=== PATIENT | female | born 1950 | race Hispanic/Latino ===

== ENCOUNTER 2018-12-07 18:05 | Inpatient (IN) | payer MEDICARE, BC ==
[2018-12-07] MEDS ORDERED: Morphine 4 MG/ML VIAL ONE ×2 (19:19→21:27)
[2018-12-07 19:30] LABS: #Eosinphils 0.1 thou/uL (0.0-0.7); #Lymphocytes 2.7 thou/uL (1.20-3.40); #Monocytes 0.8 thou/uL (0.11-0.59); #Neutrophils 9.1 thou/uL (1.40-6.50); %Basophils 0.3 % (0.0-1.0); %Eosinophils 1.1 % (0.0-10.0); %Lymphocytes 21.3 % (21.0-51.0); %Monocytes 6.3 % (0.0-10.0); Hemoglobin 15.7 g/dL (12.0-16.0); Mean Corpuscular HGB CONC 32.5 g/dL (32.0-36.0); Mean Corpuscular Hemoglobin 28.2 pg (27.0-31.0); Mean Corpuscular Volume 86.8 fL (78.0-98.0); Mean Platelet Volume 8.1 fL (7.4-10.4); Platelet Count 224 thou/uL (130-400); RBC Distribution Width 13.8 % (11.5-14.5); Red Blood Cell (RBC) Count 5.56 mill/uL (4.20-5.40); White Blood Cell (WBC) Count 12.8 thou/uL (4.8-10.8)
[2018-12-07 19:51] LABS: ALT (SGPT) 31 U/L (8-55); AST (SGOT) 27 U/L (5-34); Albumin 4.5 g/dL (3.4-4.8); Alkaline Phosphatase 72 U/L (40-150); Anion Gap 15 mmol/L (10-20); BUN (Urea Nitrogen) 21 mg/dL (9.8-20.1); Bilirubin, Total 0.4 mg/dL (0.2-1.2); Calc. Creatinine Clearance 0 mL/min (70-130); Carbon Dioxide 26 mmol/L (23-31); Chloride 101 mmol/L (98-107); Estimated GFR-MDRD 61; Globulin 2.6 g/dL (2.4-3.5); Glucose 118 mg/dL (80-115); Potassium 4.5 mmol/L (3.5-5.1); Protein, Total 7.1 g/dL (6.0-8.3); Sodium 137 mmol/L (136-145)
--- NOTE | 2018-12-07 19:56 | RAD ---
FXR Knee Lt 4 View STANDARD: 12/07/2018 7:14 PM CLINICAL INDICATION: Fall with posttraumatic pain COMPARISON: None. FINDINGS: Fracture:Distracted, comminuted fracture of the patella is present Arthropathy:None of significance. Prominent anterior soft tissue swelling. There is mild suprapatellar joint capsular distention. IMPRESSION: 1. Acute mildly displaced patellar fracture which is comminuted.
[2018-12-07] MEDS ORDERED: CEFAZOLIN 2 GM in Premix Bag 1 BAG IVPB SCH (20:30)
[2018-12-07] MEDS ORDERED: Lorazepam 2 MG/ML VIAL ONE (21:22)
--- NOTE | 2018-12-07 21:54 | HP ---
CONSULTATIONS: Orthopedics, Dr. Sheriff. HISTORY OF PRESENT ILLNESS: The patient is a 68-year-old woman, who was sweeping her porch when she lost her balance and fell landing on her left knee and bilateral upper extremities. She was brought to the emergency department with a chief complaint of left knee pain, swelling, and inability to ambulate. She underwent evaluation and examination and was noted to have a comminuted patella fracture. At which time, we were asked to evaluate the patient for admission and obtain Orthopedic consultation. The patient denied any loss of consciousness, though she did strike her face on something when she fell. She has had a small laceration noted to the inside of her upper lip. ALLERGIES: NONE. CURRENT MEDICATIONS: The patient does not have her list, but says that her will be able to obtain that tonight. PAST MEDICAL HISTORY: 1. Diabetes. 2. Hypertension. 3. Hyperlipidemia. 4. Anxiety. 5. Depression. PAST SURGICAL HISTORY: 1. Appendectomy. 2. Cholecystectomy. 3. Hysterectomy. 4. Tonsillectomy. SOCIAL HISTORY: The patient denies drug, tobacco, or alcohol use. She lives at home independently with her . PHYSICAL EXAMINATION: VITAL SIGNS: Blood pressure 171/86, heart rate 85, respirations 16, oxygen saturation 95% on room air, and temperature is 98.4. GENERAL: The patient is resting comfortably in bed. She is awake, alert, and oriented x3. Ponce Coma Scale is 15. HEENT: Head is normocephalic, atraumatic. Eyes, extraocular motion intact. PERRLA bilaterally. Ears are atraumatic without discharge. Nose, atraumatic without discharge. The patient has an abrasion to her upper lip and also has a small laceration to the inside of her upper lip of approximately 3 mm. Dentition appears intact. Oropharynx is clear. NECK: Nontender. Trachea is midline. No JVD. CHEST: Clear to auscultation with good inspiratory and expiratory effort. HEART: Regular rate and rhythm. ABDOMEN: Soft, flat, nontender with active bowel sounds. PELVIS: Stable. EXTREMITIES: Neurovascularly intact x4. Left lower extremity has swelling noted to the anterior knee with tenderness to palpation and contusion. BACK: Atraumatic and nontender. LABORATORY FINDINGS: White blood cells 12.8, hemoglobin 15.7, hematocrit 48.3, platelets 224. Sodium 137, potassium 4.5, chloride 102, CO2 of 26, BUN 21, creatinine 0.91, glucose 118. LFTs are unremarkable. RADIOGRAPHS: Views of the left knee showed acute mildly displaced comminuted patellar fracture. ASSESSMENT: 1. Status post ground level fall. 2. Comminuted left patellar fracture. 3. History of hypertension. 4. History of hyperlipidemia. 5. History of depression and anxiety. 6. History of type-2 diabetes. PLAN: Plan will be to admit the patient to the surgical floor. She will be placed in a knee immobilizer tonight. She will be made n.p.o. after midnight. She will have pain control, pulmonary toilet, gastritis, and mechanical VTE prophylaxis. Postoperatively, the patient will work with Physical and Occupational Therapy and plan to be discharged later tomorrow after surgery. The evaluation, examination, and laboratory results were discussed with Dr. Trinidad at the time of dictation. She was evaluated in the emergency department. The patient was also evaluated by Dr. Sheriff in the emergency department. Job ID: [id number]
[2018-12-07] MEDS ORDERED: Ondansetron PF 4 MG/2 ML Vial IVP PRN (23:09)
[2018-12-07] MEDS ORDERED: Morphine 4 MG/ML VIAL SLOW IVP PRN (23:09)
[2018-12-07] MEDS ORDERED: Dextrose 5% in Water 1,000 ML IV PRN (23:09)
[2018-12-07] MEDS ORDERED: Ketorolac Tromethamine 30 MG/ML VIAL IVP SCH (23:09)
[2018-12-07] MEDS ORDERED: Morphine 2 MG/ML SYRINGE SLOW IVP PRN (23:09)
[2018-12-07] MEDS ORDERED: Ondansetron ODT 4 MG TAB PO PRN (23:09)
[2018-12-07] MEDS ORDERED: hydrALAZINE 20 MG/ML VIAL SLOW IVP PRN (23:09)
[2018-12-07] MEDS ORDERED: Cyclobenzaprine 10 MG TAB PO PRN (23:09)
[2018-12-07] MEDS ORDERED: Dextrose 50% Abboject 50 ML SYRINGE SLOW IVP PRN (23:09)
[2018-12-07] MEDS ORDERED: Famotidine 20 MG TAB PO SCH (23:30)
[2018-12-08 01:21] VITALS: BMI 32.4
[2018-12-08 05:02] LABS: #Lymphocytes 2.5 thou/uL (1.20-3.40); #Monocytes 0.7 thou/uL (0.11-0.59); #Neutrophils 8.6 thou/uL (1.40-6.50); %Basophils 0.1 % (0.0-1.0); %Eosinophils 0.3 % (0.0-10.0); %Lymphocytes 21.4 % (21.0-51.0); %Monocytes 5.7 % (0.0-10.0); %Neutrophils 72.5 % (42.0-75.0); Hemoglobin 14.3 g/dL (12.0-16.0); Mean Corpuscular HGB CONC 32.4 g/dL (32.0-36.0); Mean Corpuscular Hemoglobin 28.2 pg (27.0-31.0); Mean Corpuscular Volume 87.1 fL (78.0-98.0); Platelet Count 199 thou/uL (130-400); RBC Distribution Width 13.8 % (11.5-14.5); Red Blood Cell (RBC) Count 5.09 mill/uL (4.20-5.40); White Blood Cell (WBC) Count 11.9 thou/uL (4.8-10.8)
[2018-12-08 05:21] LABS: Anion Gap 16 mmol/L (10-20); BUN (Urea Nitrogen) 22 mg/dL (9.8-20.1); Calc. Creatinine Clearance 81 mL/min (70-130); Calcium 9.3 mg/dL (7.8-10.44); Carbon Dioxide 24 mmol/L (23-31); Chloride 105 mmol/L (98-107); Estimated GFR-MDRD 57; Glucose 157 mg/dL (80-115); Sodium 140 mmol/L (136-145)
[2018-12-08] MEDS: Acetaminophen 1,000 MG in Premix Bag 1 BAG IVPB SCH ×3 (05:24→15:43)
[2018-12-08] MEDS: Ketorolac Tromethamine 30 MG/ML VIAL IVP SCH ×2 (05:24→15:44)
[2018-12-08] MEDS: Sodium Chloride 0.9% 1,000 ML IV SCH ×2 (08:52)
[2018-12-08] MEDS: Famotidine 20 MG TAB PO SCH ×2 (08:52→21:17)
--- NOTE | 2018-12-08 09:30 | CON ---
DATE OF CONSULTATION: 12/07/2018 BRIEF HISTORY OF PRESENT ILLNESS: The patient is a 68-year-old lady, who earlier on the evening of December 07 was sweeping her porch when she lost her balance and fell landing directly on the left knee as well as outstretched hands. Upon arrival at [facility], she had a principal complaint of left knee pain and swelling with some abrasions over the anterior right knee as well. Evaluation included plain x-rays of the knee, which demonstrated a patellar fracture with displacement. As such, the patient now admitted to the Trauma Service with Orthopedic consultation requested. The patient also struck her face and upper lip, has a small inner lip fracture laceration, which is being treated nonsurgically. PAST MEDICAL HISTORY: Remarkable for diabetes, hypertension, depression, and hyperlipidemia. PAST SURGICAL HISTORY: Includes cholecystectomy, appendectomy, tonsillectomy, and hysterectomy. MEDICATIONS: The patient does not have a current list. She does state that she takes metformin. In addition to metformin, she takes Humalog as needed. Also reports that she is on medications for her hypertension, we will try and obtain this list. ALLERGIES: NONE KNOWN. SOCIAL HISTORY: She denies tobacco, drug, or alcohol use. She lives with her . FAMILY HISTORY: Noncontributory. REVIEW OF SYSTEMS: Denies recent fevers, chills, or sweats. Denies chest pain or shortness of breath. Denies numbness or tingling in the lower extremity. PHYSICAL EXAMINATION: VITAL SIGNS: Temperature of 97.6, heart rate of 81, respiratory rate of 16, and blood pressure of 166/87. HEENT: Remarkable for a small abrasion at her upper lip as well as an inner lip laceration. Otherwise atraumatic. NECK: Supple. HEART: Shows a regular rate and rhythm without murmur. LUNGS: Clear to auscultation bilaterally with good breath sounds. CHEST: Chest wall is nontender. ABDOMEN: Flat, nontender. PELVIS: Stable to compression. EXTREMITIES: Remarkable for bilateral upper extremities that are atraumatic, except for some mild wrist discomfort felt along the palmar aspect of the wrist. Palpation shows no crepitation, deformity, or focal pain to palpation. NEUROVASCULAR: She is intact with normal sensation in the radial, median, and ulnar distributions. The right lower extremity is remarkable for small abrasion over the anterior knee. The patella to palpation shows no defects. The knee otherwise is without effusion or hemarthrosis. Distally, she has intact sensation in the foot, both dorsally and along the plantar surface. The left lower extremity is remarkable for a palpable gap at the patella with abrasions anteriorly as well. She has a hemarthrosis as well as pain with any motion at the knee. Distally, neurovascular exam is intact. Her lower calf compartments are soft. X-RAY STUDIES: Four-view x-ray of the right knee remarkable for a predominantly transverse patellar fracture; however, the inferior pole has 2 vertical fracture lines present as well, but without displacement of these vertical fracture lines. LABORATORY DATA: She was found to have a white count of 12.8, hematocrit of 48.3, and 224,000 platelets. ASSESSMENT: A 68-year-old lady status post ground level fall sustaining left patellar fracture with displacement. PLAN: At this time, we will plan on proceeding to the operating room for open reduction and internal fixation of this patella. I have discussed with her risks and benefits of this procedure. Risks included, but are not limited to bleeding, infection, nerve injury, wound problems, arthritis, nonunion, malunion, DVT, PE, loss of limb or life. The patient appears to understand and does wish to proceed. Informed consent will be obtained prior to surgery. Job ID: [id number]
[2018-12-08] MEDS ORDERED: Dexamethasone 20 MG/5 ML VIAL ONE (10:06)
[2018-12-08] MEDS ORDERED: PROPOFOL 200 MG/20 ML VIAL ONE (10:06)
[2018-12-08] MEDS ORDERED: Glycopyrrolate 0.2 MG/ML 5 ML SYRINGE ONE (10:06)
[2018-12-08] MEDS ORDERED: PROVENTIL INHALER 6.7 G (200 INHALATIONS) ONE (10:06)
[2018-12-08] MEDS ORDERED: ePHEDrine 50 MG/ML VIAL ONE (10:06)
[2018-12-08] MEDS ORDERED: Ondansetron PF 4 MG/2 ML Vial ONE (10:06)
[2018-12-08] MEDS ORDERED: Rocuronium Bromide 10 MG/ML (10ML VIAL) ONE (10:06)
[2018-12-08] MEDS ORDERED: Lidocaine 1% PF 5 ML VIAL ONE (10:06)
[2018-12-08] MEDS ORDERED: Dextrose 50% Abboject 50 ML SYRINGE SLOW IVP PRN (11:20)
[2018-12-08] MEDS ORDERED: Dextrose 5% in Water 1,000 ML IV PRN (11:20)
[2018-12-08] MEDS ORDERED: Midazolam HCl 2 mg/2 ml Vial ONE (11:58)
[2018-12-08] MEDS ORDERED: Fentanyl 100 MCG/2 ML VIAL ONE ×2 (11:58→12:28)
[2018-12-08] MEDS ORDERED: Albuterol Sulfate HFA (OR ONLY) ONE (13:25)
--- NOTE | 2018-12-08 14:03 | RAD ---
F3 intraoperative images of the left knee 12/08/2018 COMPARISON: 12/07/2018 HISTORY: Open reduction and internal fixation of left patellar fracture. Previously noted patellar fr acture has been treated with horizontal and transverse screws as well as cerclage wires. There is luke tomic alignment at the fracture site. IMPRESSION: ORIF of the left patella.
[2018-12-08] MEDS ORDERED: Sodium Chloride For Inhalation 0.9% 3 ML NEB ONE (14:24)
[2018-12-08] MEDS ORDERED: Ondansetron HCl/PF 4 MG/2 ML Vial IVP PRN (14:29)
[2018-12-08] MEDS ORDERED: Morphine Sulfate 2 MG/ML SYRINGE SLOW IVP PRN (14:29)
[2018-12-08] MEDS ORDERED: Promethazine HCl 25 MG/ML VIAL IM PRN (14:29)
[2018-12-08] MEDS ORDERED: HYDROmorphone 2 MG/ML VIAL SLOW IVP PRN (14:29)
[2018-12-08] MEDS ORDERED: Promethazine HCl 25 MG/ML VIAL SLOW IVP PRN (14:29)
[2018-12-08] MEDS ORDERED: Meperidine HCl/PF 25 MG/ML VIAL SLOW IVP PRN (14:29)
--- NOTE | 2018-12-08 14:32 | PRG ---
DATE OF SERVICE: 12/08/2018 SUBJECTIVE: The patient is currently on the surgical floor. She is status post ground level fall when she sustained a comminuted left patellar fracture. She is awaiting surgical repair today. She has been n.p.o. after midnight. Her pain is being currently controlled. OBJECTIVE: VITAL SIGNS: Temperature is 97.6, heart rate 81, blood pressure 166/87, respirations 16, oxygen saturation is 95% on room air. GENERAL: The patient is resting comfortably in bed. She is eagerly awaiting her surgery. HEENT: Unremarkable. LUNGS: Clear to auscultation with good inspiratory and expiratory effort. HEART: Regular rate and rhythm. ABDOMEN: Soft, flat, nontender with active bowel sounds. EXTREMITIES: Neurovascularly intact x4. Left lower extremity is immobilized in a knee immobilizer. LABORATORY FINDINGS: White blood cell count 11.9, hemoglobin 14.3, hematocrit 44.3, platelets 199. Sodium 140, potassium 5.0, chloride 105, CO2 of 24, BUN 22, creatinine 0.97, glucose 157. There are no radiographs reviewed this morning. ASSESSMENT AND PLAN: 1. Status post ground level fall. 2. Comminuted left patellar fracture, awaiting surgical procedure. 3. History of hypertension. 4. History of hyperlipidemia. 5. History of depression, anxiety. 6. History of type 2 diabetes. PLAN: Plan will be to continue supportive care. Postoperatively, we will change her pain medications to p.o. We will start Physical and Occupational Therapy and resume her home medications. The patient was evaluated this morning by Dr. Trinidad. Job ID: [id number]
[2018-12-08] MEDS ORDERED: traMADol HCl 50 MG TAB PO PRN ×2 (15:47)
--- NOTE | 2018-12-08 16:12 | OP ---
DATE OF PROCEDURE: 12/08/2018 PREOPERATIVE DIAGNOSIS: Comminuted left patellar fracture. POSTOPERATIVE DIAGNOSIS: Comminuted left patellar fracture. PROCEDURE PERFORMED: Open reduction and internal fixation of left patella. ANESTHESIA: General. DOUBLE END TENONER OPERATOR: Marcia Byrne PA-C. TOURNIQUET TIME: 50 minutes at 300 mmHg. IMPLANTS: Synthes 3.5 mm cannulated screws x3. COMPLICATIONS: None. DRAINS: None. SPECIMEN: None. OUTCOME: Satisfactory. INDICATIONS: The patient is a 68-year-old lady status post ground level fall landing on the point of her left knee as well as outstretched hands. On evaluation in the emergency department, she was found to have a comminuted patellar fracture with the transverse portion of the fracture being displaced. After discussion with the patient including risks and benefits, we decided to proceed with open reduction and internal fixation. Informed consent has been obtained and all questions were answered. Risks and benefits discussed. Risks include, but are not limited to bleeding, infection, nerve injury, DVT, PE, knee arthritis, knee pain, loss of motion, loss of limb or life. Consent has been signed. DESCRIPTION OF PROCEDURE: The patient was brought to the operating room and a time-out was performed followed by induction of general anesthesia. Next, the patient was positioned supine on the OR table and a sterile prep and drape was performed in the left lower extremity. A vertical incision was made centered over the patella, after skin was sharply incised, dissection was carried down to the underlying quadriceps mechanism. At this point, the patellar fracture could be clearly visualized. She did not have tears of medial or lateral retinaculum. Next, the fracture hematoma was lavaged through the main transverse fracture line. Once done, the edges of the fracture were inspected. The inferior pole had two vertical splits in the sagittal plane as well as a single split through the coronal plane. This was then held in place provisionally with a K-wire from lateral to medial capturing the inferior fragments. This was then followed by placement of a cannulated screw over this guidewire. Next, this reconstructed inferior pole was held against the superior pole with a bone tenaculum and then AP lateral C-arm imaging was obtained to confirm acceptable reduction of the joint surface. Once done, two threaded guidewire were passed from the superior portion of the patella across the fracture and into the inferior pole. Once appropriately positioned as viewed on AP and lateral C-arm imaging, measurement was taken off these pins and then a vertically oriented cannulated screws were passed in standard fashion. Next, a tension band wire was passed, crossed each of the two cannulated screws, and then secured to one another using a daniel-cross pattern and tensioning of the wires. This resulted in a slight gap at the fracture. However, with any additional tightening, the coronal split became more displaced as such we accepted the reduction. The wires were then cut proud and bent at right angles and then the knee thoroughly irrigated. The periosteum over the patella was reapproximated with 0 Vicryl and then 2-0 Vicryl and nakul were used for the skin. Xeroform gauze, Webril, Jc wrap dressing, and knee immobilizer were then applied to the knee. The tourniquet was let down and the patient was transferred to recovery room in stable condition. There were no complications. She tolerated the procedure well. Job ID: [id number]
[2018-12-08] MEDS ORDERED: PARoxetine 20 MG TAB PO SCH (17:00)
[2018-12-08] MEDS ORDERED: Lisinopril 2.5 MG TAB PO SCH (17:00)
[2018-12-08] MEDS: HumaLOG 300 UNITS/3 ML VIAL SC SCH (17:04)
[2018-12-08] MEDS: Acetaminophen 500 MG TAB PO SCH (17:17)
[2018-12-08] MEDS ORDERED: Icosapent Ethyl [Vascepa] 2 CAP PO SCH (21:00)
[2018-12-08] MEDS: Ibuprofen 600 MG TAB PO SCH (21:17)
[2018-12-08] MEDS: Insulin Regular 300 UNITS/3 ML VIAL SC PRN (21:26)
[2018-12-08] MEDS ORDERED: CEFAZOLIN 1 GM VIAL SLOW IVP SCH (22:00)
[2018-12-09] MEDS: Acetaminophen 500 MG TAB PO SCH ×4 (00:01→17:14)
[2018-12-09] MEDS: Ibuprofen 600 MG TAB PO SCH ×2 (05:54→14:43)
--- NOTE | 2018-12-09 07:48 | HP ---
ADDENDUM: This is an addendum to the H and P dictated by Gina Palacio, trauma PA. For full details, please see his dictated notes for details of which I have confirmed. The patient was seen in conjunction with Keisha Gina on morning rounds about 10:30. HISTORY OF PRESENT ILLNESS: In short, she is a 68-year-old woman, who tripped over a chair while sweeping her ports and fell onto her hands and knees. She came to the emergency department with severe left knee pain and swelling and inability to ambulate and found to have a comminuted patella fracture. Her pain is controlled as long as she is immobile. She does have a history of diabetes with neuropathy, hypertension, hyperlipidemia, anxiety, and depression. ALLERGIES: SHE DOES NOT RECORD ANY ALLERGIES. PAST SURGERY HISTORY: Appendectomy, cholecystectomy, hysterectomy, and tonsillectomy. SOCIAL HISTORY: She does not smoke, drink, or use illicit drugs and lives with her who is at the bedside. OUTPATIENT MEDICATIONS: Include; 1. Insulin pen. 2. Metformin. 3. Sodium bicarbonate. 4. Farxiga. 5. Humalog. 6. Vascepa. 7. Lisinopril. 8. Metoprolol. 9. Paxil. 10. Demadex. REVIEW OF SYSTEMS: A 10-system review of systems is negative except per HPI and some mild pain in her right knee, and bruising on her hands. PHYSICAL EXAMINATION: VITAL SIGNS: Have been stable since admission with moderate hypertension. GENERAL: Reveals a pleasant woman, in no acute distress, who appears her stated age. HEENT: Unremarkable. NECK: Nontender with no step-offs. HEART: Regular without murmurs, rubs, or gallops. LUNGS: Clear to auscultation bilaterally. ABDOMEN: Soft, nontender, and nondistended with multiple healed surgical incisions. EXTREMITIES: Warm and well perfused. Her left knee is extremely bruised and swollen. She has good distal movement and sensation to light touch with good capillary refill and palpable pedal pulses. NEURO: No focal deficits. PSYCHIATRIC: Alert, oriented, and appropriate. LABORATORY DATA: White count 11.9, hematocrit 44, and platelets 199. Electrolytes unremarkable. Glucose 118 to 157. Knee x-ray is reviewed and I agree with the written report. ASSESSMENT: Comminuted patellar fracture with plan for OR today by Dr. Zissimos. The patient is stable for this with no other identified injuries. She will require physical therapy postoperatively to return to her preoperative level of function. Job ID: [id number]
[2018-12-09] MEDS: HumaLOG 300 UNITS/3 ML VIAL SC SCH ×2 (08:36→17:04)
[2018-12-09] MEDS: Famotidine 20 MG TAB PO SCH (08:40)
[2018-12-09] MEDS ORDERED: PARoxetine 20 MG TAB PO SCH (09:00)
[2018-12-09] MEDS ORDERED: Lisinopril 2.5 MG TAB PO SCH (09:00)
[2018-12-09] MEDS ORDERED: Aspirin 81 mg Enteric Coated Tablet PO SCH (09:00)
[2018-12-09] MEDS ORDERED: Dapagliflozin Propanediol [Farxiga] 10 MG PO SCH (09:00)
[2018-12-09] MEDS ORDERED: Torsemide 10 MG TAB PO SCH (09:00)
[2018-12-09] MEDS: Insulin Regular 300 UNITS/3 ML VIAL SC PRN ×2 (11:21→17:05)
[2018-12-09 16:27] VITALS: BP 154/75; TEMP 97.8
--- NOTE | 2018-12-10 06:12 | DIS ---
DATE OF ADMISSION: 12/07/2018 DATE OF DISCHARGE: 12/09/2018 ADMISSION DIAGNOSES: 1. Status post ground level fall. 2. Comminuted left patella fracture. 3. History of hypertension. 4. History of hyperlipidemia. 5. History of depression and anxiety. 6. History of type 2 diabetes. CONSULTATIONS: Orthopedics, Dr. Sheriff. PROCEDURES: Open reduction and internal fixation of left patella fracture. SUMMARY: The patient is a 68-year-old lady who was working on her porch when she slipped and fell and landed on her left knee. She was brought to the emergency department where she underwent evaluation and examination and was noted to have the above injuries. She will be admitted in the following day to undergo her above procedure. She was started working with Physical and Occupational Therapy and at the time of discharge, she was progressing. Her pain was being controlled. She was tolerating a diet. She was be able to discharge to inpatient rehab. The patient will follow up with Dr. Sheriff in 10 to 14 days or sooner as needed. The patient is to wear her knee immobilizer time buyer and she has strict partial weightbearing instructions. Job ID: [id number]
== END 2018-12-09 18:45 | DRG 517 ==
LOC: ERS 18:05 → SURG A 23:13
PROVIDERS: ADMIT Surgery; ATTEND Surgery
PROC: 0QSF04Z Reposition Left Patella with Internal Fixation Device, Open Approach (ICD-10-PCS; principal; 2018-12-08)
DX: S82.042A Displaced comminuted fracture of left patella, initial encounter for closed fracture (principal); I10 Essential (primary) hypertension; E78.5 Hyperlipidemia, unspecified; F32.9 Major depressive disorder, single episode, unspecified; F41.9 Anxiety disorder, unspecified; E11.40 Type 2 diabetes mellitus with diabetic neuropathy, unspecified; W18.39XA Other fall on same level, initial encounter; Z90.49 Acquired absence of other specified parts of digestive tract; Z90.710 Acquired absence of both cervix and uterus; Z90.89 Acquired absence of other organs; Z79.4 Long term (current) use of insulin; Z79.899 Other long term (current) drug therapy
CPT/HCPCS: 36415; 36416; 76000; 80048; 80053; 85025; 96374; 96375; 96376; C1713; C1769; G0390; J0131; J0690; J1100; J1815; J1885; J2001; J2060; J2250; J2270; J2405; J2704; J3010; J3490

== ENCOUNTER 2022-11-10 10:07 | Outpatient (CLI) | payer MEDICARE | END 2022-11-10 10:08 | disposition home or self-care (01) | LOC: BICMAMMO 10:07 | PROVIDERS: ATTEND Family Medicine | DX: M81.0 Age-related osteoporosis without current pathological fracture (principal) | CPT/HCPCS: 77080 ==

== ENCOUNTER 2023-07-11 10:34 | Outpatient (CLI) | payer MEDICARE | END 2023-07-11 10:35 | disposition home or self-care (01) | LOC: BICMAMMO 10:34 | PROVIDERS: ATTEND Family Medicine | DX: Z12.31 Encounter for screening mammogram for malignant neoplasm of breast (principal) | CPT/HCPCS: 77063; 77067 ==

== ENCOUNTER 2024-07-18 09:04 | Outpatient (CLI) | payer MEDICARE | END 2024-07-18 09:05 | disposition home or self-care (01) | LOC: BICMAMMO 09:04 | PROVIDERS: ATTEND Family Medicine | DX: Z12.31 Encounter for screening mammogram for malignant neoplasm of breast (principal) | CPT/HCPCS: 77063; 77067 ==

== ENCOUNTER 2025-07-22 09:38 | Outpatient (CLI) | payer MEDICARE | END 2025-07-22 09:39 | disposition home or self-care (01) | LOC: BICMAMMO 09:38 | PROVIDERS: ATTEND Nurse Practitioner Family | DX: Z12.31 Encounter for screening mammogram for malignant neoplasm of breast (principal) | CPT/HCPCS: 77063; 77067 ==